=== PATIENT | female | born 1985 | race Caucasian/White ===

== ENCOUNTER 2017-08-12 11:16 | Inpatient (IN) | payer BC ==
[2017-08-12] MEDS ORDERED: Water For Irrigation,Sterile 1,000 ML Container IRR PRN (11:49)
[2017-08-12] MEDS ORDERED: Lidocaine 1% 50 ML MDV INJECT PRN (11:49)
[2017-08-12] MEDS ORDERED: Misoprostol 200 MCG Tab PO PRN (11:49)
[2017-08-12] MEDS ORDERED: Methylergonovine 0.2 MG/1 ML Amp IM PRN (11:49)
[2017-08-12] MEDS ORDERED: Carboprost Tromethamine 250 MCG/1 ML Amp IM PRN (11:49)
[2017-08-12] MEDS ORDERED: Sodium Chloride 0.9% 10 ML Syringe FLUSH PRN (11:49)
[2017-08-12] MEDS ORDERED: Terbutaline 1 MG/ML SDV SUBCUT PRN (11:49)
[2017-08-12] MEDS ORDERED: Sodium Chloride 0.9% 2.5 ML Syringe FLUSH PRN (11:49)
[2017-08-12] MEDS ORDERED: Butorphanol 1 MG/ML SDV IVPUSH PRN (11:49)
[2017-08-12] MEDS ORDERED: Nalbuphine 10 MG/1 ML Vial IVPUSH PRN (11:49)
[2017-08-12] MEDS ORDERED: Oxytocin/0.9 % Sodium Chloride 30 UNIT/500 ML BAG IV SCH ×2 (12:00)
[2017-08-12] MEDS: Lactated Ringers 1,000 ML IV SCH ×3 (12:15→14:40)
[2017-08-12] MEDS ORDERED: fentaNYL 100 MCG/2 ML SDV ONE (13:59)
[2017-08-12] MEDS ORDERED: Ropivacaine 100 ML ONE (14:00)
[2017-08-12] MEDS ORDERED: Ropivacaine 0.2% 2 MG/ML 20 ML SDV ONE (14:00)
--- NOTE | 2017-08-12 14:35 | PCM.PREANE ---
Preanesthetic Assessment - Procedure Proposed Procedure: induction of labor for post dates - Anesthesia/Transfusion/Family Hx Anesthesia History: Prior Anesthesia Without Reaction Other Type of Anesthesia Reaction Comment: 2nd cousin had troubles at 28 yrs old and ended up in [facility] Family History of Anesthesia Reaction: No Transfusion History: No Prior Transfusion(s) - Review of Systems Other: Reports: None - Physical Assessment Height: 5 ft 5 in Weight: 83.461 kg Mental Status: Alert & Oriented x3 Dentition: Reports: Normal Dentition ROM/Head Extension: Full - Lab Values: Laboratory Last Values WBC 8.63 K/uL (4.0-11.0) 08/12/17 12:10 RBC 4.31 M/uL (4.30-5.90) 08/12/17 12:10 Hgb 12.2 g/dL (12.0-16.0) 08/12/17 12:10 Hct 35.8 % (36.0-46.0) L 08/12/17 12:10 MCV 83.1 fL (80.0-98.0) 08/12/17 12:10 MCH 28.3 pg (27.0-32.0) 08/12/17 12:10 MCHC 34.1 g/dL (31.0-37.0) 08/12/17 12:10 RDW Std Deviation 40.1 fl (28.0-62.0) 08/12/17 12:10 RDW Coeff of Curtis 13 % (11.0-15.0) 08/12/17 12:10 Plt Count 236 K/uL (150-400) 08/12/17 12:10 MPV 10.20 fL (7.40-12.00) 08/12/17 12:10 Nucleated RBC % 0.0 /100WBC 08/12/17 12:10 Nucleated RBCs # 0 K/uL 08/12/17 12:10 Blood Type O POSITIVE 08/12/17 12:10 Antibody Screen NEGATIVE 08/12/17 12:10 - Allergies Allergies/Adverse Reactions: Allergies Allergy/AdvReac Type Severity Reaction Status Date / Time No Known Allergies Allergy Verified 10/29/15 13:00 MDT - Blood Blood Available: Yes Product(s) Available: PRBC - Acknowledgements Anesthesia Type Planned: Epidural Pt an Appropriate Candidate for the Planned Anesthesia: Yes Alternatives and Risks of Anesthesia Discussed w Pt/Guardian: Yes Pt/Guardian Understands and Agrees with Anesthesia Plan: Yes PreAnesthesia Questionnaire - Past Health History Medical/Surgical History: Denies Medical/Surgical History HEENT History: Reports: Other (See Below) Other HEENT History: wears glasses/contacts [employer] History: Reports: - Past Surgical History HEENT Surgical History: Reports: Oral Surgery Musculoskeletal Surgical History: Reports: Other (See Below) - SUBSTANCE USE Smoking Status *Q: Never Smoker Tobacco Use Within Last Twelve Months: No Second Hand Smoke Exposure: No Days Per Week of Alcohol Use: 0 Recreational Drug Use History: No - HOME MEDS Home Medications: Home Meds Iron 1 tab PO DAILY 12/29/13 [History] Fish Oil/[place]-3 Fatty Acids [Fish Oil] 1,200 mg PO DAILY #1 12/30/13 [Rx] Vit 90/Iron Fum/Folic [ Formula] 1 cap PO DAILY #1 12/30/13 [Rx ] Biotin 1 tab PO DAILY 09/19/16 [History] Cinnamon Bark [Cinnamon] 1 tab PO DAILY 09/19/16 [History] Coconut Oil 1 tab PO DAILY 09/19/16 [History] Magnesium 1 tab PO DAILY 09/19/16 [History] Norethindrone-Ethinyl Estrad [Necon 0.5-35-28 Tablet] 1 tab PO ASDIRECTED [History] Vitamin B Complex 1 tab PO DAILY 09/19/16 [History] - CURRENT (IN HOUSE) MEDS Current Meds: Current Medications Butorphanol Tartrate (Stadol) 1 mg IVPUSH ASDIRECTED PRN PRN Reason: Pain Carboprost Tromethamine (Hemabate Ds) 250 mcg IM ASDIRECTED PRN PRN Reason: Post Hemorrhage Lactated Ringer's (Ringers, Lactated) 1,000 mls @ 150 mls/hr IV ASDIRECTED KEVIN Last Infusion: 08/12/17 14:07 Dose: 999 mls/hr Oxytocin/Sodium Chloride (Oxytocin 30 Unit/500 Ml-Ns) 30 unit in 500 mls @ 999 mls/hr IV ASDIRECTED KEVIN Oxytocin/Sodium Chloride (Oxytocin 30 Unit/500 Ml-Ns) 30 unit in 500 mls @ 2 mls/hr IV TITRATE KEVIN; 2 MUNITS/MIN PRN Reason: Protocol Last Titration: 08/12/17 14:22 Dose: 10 munits/min, 10 mls/hr Lidocaine HCl (Xylocaine 1%) 50 ml INJECT .ONCE PRN PRN Reason: Laceration repair Methylergonovine Maleate (Methergine) 0.2 mg IM ASDIRECTED PRN PRN Reason: Post Hemorrhage Misoprostol (Cytotec) 200 mcg PO .ONCE PRN PRN Reason: Post Hemorrhage Nalbuphine HCl (Nubain) 10 mg IVPUSH ASDIRECTED PRN PRN Reason: Pain (severe 7-10) Sodium Chloride (Saline Flush) 10 ml FLUSH ASDIRECTED PRN PRN Reason: Keep Vein Open Sodium Chloride (Saline Flush) 2.5 ml FLUSH ASDIRECTED PRN PRN Reason: Keep Vein Open Sterile Water (Sterile Water For Irrigation) 1,000 ml IRR ASDIRECTED PRN PRN Reason: delivery Terbutaline Sulfate (Brethine) 0.25 mg SUBCUT ASDIRECTED PRN PRN Reason: Tacysystole Discontinued Medications Fentanyl (Sublimaze) Confirm Administered Dose 200 mcg .ROUTE .STK-MED ONE Stop: 08/12/17 14:00 Ropivacaine (Naropin 0.2%) Confirm Administered Dose 100 mls @ as directed .ROUTE .STK-MED ONE Stop: 08/12/17 14:01 Ropivacaine (Naropin 0.2%) Confirm Administered Dose 20 ml .ROUTE .STK-MED ONE Stop: 08/12/17 14:01
[2017-08-12] MEDS ORDERED: oxyCODONE 5 MG Tab PO PRN (19:15)
[2017-08-12] MEDS ORDERED: Witch Hazel Medicated Pads 40/Jar TOP PRN (19:15)
[2017-08-12] MEDS ORDERED: Ibuprofen 400 MG Tab PO PRN (19:15)
[2017-08-12] MEDS ORDERED: Acetaminophen 500 MG Tab PO PRN ×2 (19:15)
[2017-08-12] MEDS ORDERED: Lanolin 100% Cream 7 GM Tube TOP PRN (19:15)
[2017-08-12] MEDS ORDERED: Bisacodyl 10 MG Supp RECTAL PRN (19:15)
[2017-08-12] MEDS ORDERED: Docusate Sodium 100 MG Cap PO PRN (19:15)
[2017-08-12] MEDS ORDERED: Benzocaine/Menthol 20%-0.5% Spray 78 GM Cannister TOP PRN (19:15)
--- NOTE | 2017-08-13 01:50 | OR ---
SURGEON: Cortney Arora M.D. DATE OF PROCEDURE: 08/12/2017 PREOPERATIVE DIAGNOSIS: 1. 40 and 4 week intrauterine . 2. Induction of labor past due . POSTOPERATIVE DIAGNOSIS: 1. 40 and 4 week intrauterine . 2. Induction of labor past due . PROCEDURE: Spontaneous vaginal delivery, intact perineum. ESTIMATED BLOOD LOSS: 300 mL. ANESTHESIA: Epidural. COMPLICATIONS: None. FINDINGS: Term male. scores 9 at 1 minute, 9 at 5 minutes. Weight is pending. Spontaneous delivery, intact placenta, 3-vessel cord. DISPOSITION: to nursery, mother in LDRP. PROCEDURE DETAILS: Merari is a 31-year-old, G3, P2-0-0-2, at 40 and 4 weeks gestation who presented this afternoon for a scheduled induction of labor due to past due . Risks of the procedure have been discussed with her and proper consent was obtained. The patient was admitted. Routine labs drawn. IV hydration was initiated. Reactive NST was obtained. heart tones 120s variability. On initial exam, the patient was found to be 3 cm, 70% effaced, -3 station. Pitocin induction was initiated. The patient responded nicely to this. She opted to undergo an epidural. She underwent this. Became more comfortable. Thereafter, underwent an amniotomy. At that time, she was found to be 4 to 5 cm, 80% effaced, -2 station. Clear fluid was returned. The patient progressed quickly to complete within the next hour. I was called for delivery. Upon my arrival, the patient was placed in modified dorsal lithotomy position, prepped and draped in the usual aseptic manner. station was +3. She pushed with the next contraction, was able to deliver 's head atraumatically, spontaneously, followed by anterior shoulder, posterior shoulder, main body without difficulty. The 's oropharynx and nares were bulb suctioned. Cord clamped x2 and cut. Infant was handed off to the attending nursing staff. Cord arterial, cord venous, cord blood sampling was obtained. Light suprapubic pressure was applied while the placenta was delivered spontaneously intact. Vigorous fundal uterine massage was applied while 30 units of Pitocin was delivered in 500 mL IV fluid. Upon inspection of cervix, vaginal sidewall, and perineum, it was found to be intact. The patient tolerated this procedure well. Uterus remained firm. Hemostasis evident. Sponge count and needle count were correct. The patient will remain in LDRP. Infant in nursery. CLAY / MOHINDER /[id number]
--- NOTE | 2017-08-13 02:33 | PCM48HPAN ---
Post Anesthesia Note - EVALUATION WITHIN 48HRS OF ANESTHETIC Vital Signs in Normal Range: Yes Patient Participated in Evaluation: Yes Respiratory Function Stable: Yes Airway Patent: Yes Cardiovascular Function Stable: Yes Hydration Status Stable: Yes Pain Control Satisfactory: Yes Nausea and Vomiting Control Satisfactory: Yes Mental Status Recovered: Yes
--- NOTE | 2017-08-13 08:25 | PCM.PNPP ---
<Nathalie Raymond - Last Filed: 08/13/17 08:22> - General Info Date of Service: 08/13/17 Functional Status: Reports: Pain Controlled, Tolerating Diet, Ambulating, Urinating - Review of Systems General: Denies: Fever, Weakness, Fatigue Pulmonary: Denies: Shortness of Breath, Pleuritic Chest Pain, Cough Cardiovascular: Denies: Chest Pain, Palpitations, Dyspnea on Exertion Gastrointestinal: Denies: Abdominal Pain Genitourinary: Denies: Dysuria Psychiatric: Reports: No Symptoms - General Info Date of Service: 08/13/17 - Patient Data Vital Signs - Most Recent: Last Vital Signs Temp 36.2 C 08/13/17 04:00 Pulse 61 08/13/17 06:30 Resp 15 08/13/17 04:00 BP 110/68 08/13/17 04:00 Pulse Ox 100 08/13/17 04:00 Weight - Most Recent: 83.461 kg Lab Results - Last 24 Hours: Laboratory Results - last 24 hr 08/12/17 08/12/17 08/13/17 Range/Units 12:10 12:10 05:53 WBC 8.63 (4.0-11.0) K/uL RBC 4.31 (4.30-5.90) M/uL Hgb 12.2 11.0 L (12.0-16.0) g/dL Hct 35.8 L 32.9 L (36.0-46.0) % MCV 83.1 (80.0-98.0) fL MCH 28.3 (27.0-32.0) pg MCHC 34.1 (31.0-37.0) g/dL RDW Std Deviation 40.1 (28.0-62.0) fl RDW Coeff of Curtis 13 (11.0-15.0) % Plt Count 236 (150-400) K/uL MPV 10.20 (7.40-12.00) fL Nucleated RBC % 0.0 /100WBC Nucleated RBCs # 0 K/uL Blood Type O POSITIVE Antibody Screen NEGATIVE Med Orders - Current: Current Medications Acetaminophen (Tylenol Extra Strength) 500 mg PO Q4H PRN PRN Reason: Pain Acetaminophen (Tylenol Extra Strength) 1,000 mg PO Q4H PRN PRN Reason: Pain Benzocaine/Menthol (Dermoplast Pain Relief 20%-0.5% [place]) 0 gm TOP ASDIRECTED PRN PRN Reason: Perineal Comfort Measure Bisacodyl (Dulcolax) 10 mg RECTAL .ONCE PRN PRN Reason: Constipation Carboprost Tromethamine (Hemabate Ds) 250 mcg IM ASDIRECTED PRN PRN Reason: Post Hemorrhage Docusate Sodium (Colace) 100 mg PO BID PRN PRN Reason: Constipation Emollient Ointment (Lansinoh Hpa) 0 gm TOP ASDIRECTED PRN PRN Reason: Sore Nipples Lactated Ringer's (Ringers, Lactated) 1,000 mls @ 150 mls/hr IV ASDIRECTED KEVIN Last Admin: 08/12/17 14:40 Dose: 150 mls/hr Oxytocin/Sodium Chloride (Oxytocin 30 Unit/500 Ml-Ns) 30 unit in 500 mls @ 999 mls/hr IV ASDIRECTED KEVIN Oxytocin/Sodium Chloride (Oxytocin 30 Unit/500 Ml-Ns) 30 unit in 500 mls @ 2 mls/hr IV TITRATE KEVIN; 2 MUNITS/MIN PRN Reason: Protocol Last Titration: 08/12/17 15:31 Dose: 10 munits/min, 10 mls/hr Ibuprofen (Motrin) 400 mg PO Q4H PRN PRN Reason: Pain Ibuprofen (Motrin) 800 mg PO Q6H PRN PRN Reason: Pain Lidocaine HCl (Xylocaine 1%) 50 ml INJECT .ONCE PRN PRN Reason: Laceration repair Methylergonovine Maleate (Methergine) 0.2 mg IM ASDIRECTED PRN PRN Reason: Post Hemorrhage Misoprostol (Cytotec) 200 mcg PO .ONCE PRN PRN Reason: Post Hemorrhage Oxycodone HCl (Oxycodone) 5 mg PO Q2H PRN PRN Reason: Pain Sodium Chloride (Saline Flush) 10 ml FLUSH ASDIRECTED PRN PRN Reason: Keep Vein Open Witch Yamel (Tucks) 1 pad TOP ASDIRECTED PRN PRN Reason: comfort care Discontinued Medications Butorphanol Tartrate (Stadol) 1 mg IVPUSH ASDIRECTED PRN PRN Reason: Pain Fentanyl (Sublimaze) Confirm Administered Dose 200 mcg .ROUTE .[facility]-MED ONE Stop: 08/12/17 14:00 Last Admin: 08/13/17 05:36 Dose: Not Given Ropivacaine (Naropin 0.2%) Confirm Administered Dose 100 mls @ as directed .ROUTE .STK-MED ONE Stop: 08/12/17 14:01 Last Admin: 08/13/17 05:36 Dose: Not Given Nalbuphine HCl (Nubain) 10 mg IVPUSH ASDIRECTED PRN PRN Reason: Pain (severe 7-10) Ropivacaine (Naropin 0.2%) Confirm Administered Dose 20 ml .ROUTE .STK-MED ONE Stop: 08/12/17 14:01 Last Admin: 08/13/17 05:36 Dose: Not Given Sodium Chloride (Saline Flush) 2.5 ml FLUSH ASDIRECTED PRN PRN Reason: Keep Vein Open Sterile Water (Sterile Water For Irrigation) 1,000 ml IRR ASDIRECTED PRN PRN Reason: delivery Terbutaline Sulfate (Brethine) 0.25 mg SUBCUT ASDIRECTED PRN PRN Reason: Tacysystole - Interaction Infant Disposition, : [place] in Room with Family Feeding: Breastfed ; Nursed Well Support Person: - Recovery Exam Fundal Tone: Firm Fundal Level: 1 Fingerbreadths Below Umbilicus Fundal Placement: Midline Lochia Amount: Scant Lochia Color: Rubra/Red Perineum Description: Intact, Minimal Bruising/Swelling Episiotomy/Laceration: None Bladder Status: Voiding Urinary Elimination: Voided - Exam General: Alert, Oriented Neck: Supple Lungs: Clear to Auscultation, Normal Respiratory Effort Cardiovascular: Regular Rate, Regular Rhythm GI/Abdominal Exam: Normal Bowel Sounds, Non-Tender, No Distention Extremities: Normal Inspection, Pedal Edema (trace) Skin: Warm, Dry, Intact - Problem List & Annotations (1) Vaginal delivery SNOMED Code(s): 702961310 Code(s): O80 - ENCOUNTER FOR FULL-TERM UNCOMPLICATED DELIVERY Status: Acute Current Visit: No - Problem List Review Problem List Initiated/Reviewed/Updated: Yes - Assessment Assessment:: PPD #1 from . Minimal pain and lochia. Breast feeding well. Would like to be discharged this evening. - Plan Plan:: Discharge instructions reviewed. Nothing in the vagina for 6 weeks. Continue PNV while breast feeding. Can use OTC ibuprofen/tylenol as need for pain. Instructed patient to call if she develops fever greater than 101 or bleeding through a large pad an hour. F/U with [facility] in 6 weeks. <Cortney Arora - Last Filed: 08/13/17 09:01> - Patient Data Vital Signs - Most Recent: Last Vital Signs Temp 36.2 C 08/13/17 04:00 Pulse 61 08/13/17 06:30 Resp 15 08/13/17 04:00 BP 110/68 08/13/17 04:00 Pulse Ox 100 08/13/17 04:00 Lab Results - Last 24 Hours: Laboratory Results - last 24 hr 08/12/17 08/12/17 08/13/17 Range/Units 12:10 12:10 05:53 WBC 8.63 (4.0-11.0) K/uL RBC 4.31 (4.30-5.90) M/uL Hgb 12.2 11.0 L (12.0-16.0) g/dL Hct 35.8 L 32.9 L (36.0-46.0) % MCV 83.1 (80.0-98.0) fL MCH 28.3 (27.0-32.0) pg MCHC 34.1 (31.0-37.0) g/dL RDW Std Deviation 40.1 (28.0-62.0) fl RDW Coeff of Curtis 13 (11.0-15.0) % Plt Count 236 (150-400) K/uL MPV 10.20 (7.40-12.00) fL Nucleated RBC % 0.0 /100WBC Nucleated RBCs # 0 K/uL Blood Type O POSITIVE Antibody Screen NEGATIVE Med Orders - Current: Current Medications Acetaminophen (Tylenol Extra Strength) 500 mg PO Q4H PRN PRN Reason: Pain Acetaminophen (Tylenol Extra Strength) 1,000 mg PO Q4H PRN PRN Reason: Pain Benzocaine/Menthol (Dermoplast Pain Relief 20%-0.5% [place]) 0 gm TOP ASDIRECTED PRN PRN Reason: Perineal Comfort Measure Bisacodyl (Dulcolax) 10 mg RECTAL .ONCE PRN PRN Reason: Constipation Carboprost Tromethamine (Hemabate Ds) 250 mcg IM ASDIRECTED PRN PRN Reason: Post Hemorrhage Docusate Sodium (Colace) 100 mg PO BID PRN PRN Reason: Constipation Last Admin: 08/13/17 08:48 Dose: 100 mg Emollient Ointment (Lansinoh Hpa) 0 gm TOP ASDIRECTED PRN PRN Reason: Sore Nipples Lactated Ringer's (Ringers, Lactated) 1,000 mls @ 150 mls/hr IV ASDIRECTED KEVIN Last Admin: 08/12/17 14:40 Dose: 150 mls/hr Oxytocin/Sodium Chloride (Oxytocin 30 Unit/500 Ml-Ns) 30 unit in 500 mls @ 999 mls/hr IV ASDIRECTED KEVIN Oxytocin/Sodium Chloride (Oxytocin 30 Unit/500 Ml-Ns) 30 unit in 500 mls @ 2 mls/hr IV TITRATE KEVIN; 2 MUNITS/MIN PRN Reason: Protocol Last Titration: 08/12/17 15:31 Dose: 10 munits/min, 10 mls/hr Ibuprofen (Motrin) 400 mg PO Q4H PRN PRN Reason: Pain Ibuprofen (Motrin) 800 mg PO Q6H PRN PRN Reason: Pain Last Admin: 08/13/17 08:48 Dose: 800 mg Lidocaine HCl (Xylocaine 1%) 50 ml INJECT .ONCE PRN PRN Reason: Laceration repair Methylergonovine Maleate (Methergine) 0.2 mg IM ASDIRECTED PRN PRN Reason: Post Hemorrhage Misoprostol (Cytotec) 200 mcg PO .ONCE PRN PRN Reason: Post Hemorrhage Oxycodone HCl (Oxycodone) 5 mg PO Q2H PRN PRN Reason: Pain Sodium Chloride (Saline Flush) 10 ml FLUSH ASDIRECTED PRN PRN Reason: Keep Vein Open Witch Yamel (Tucks) 1 pad TOP ASDIRECTED PRN PRN Reason: comfort care Discontinued Medications Butorphanol Tartrate (Stadol) 1 mg IVPUSH ASDIRECTED PRN PRN Reason: Pain Fentanyl (Sublimaze) Confirm Administered Dose 200 mcg .ROUTE .STK-MED ONE Stop: 08/12/17 14:00 Last Admin: 08/13/17 05:36 Dose: Not Given Ropivacaine (Naropin 0.2%) Confirm Administered Dose 100 mls @ as directed .ROUTE .STK-MED ONE Stop: 08/12/17 14:01 Last Admin: 08/13/17 05:36 Dose: Not Given Nalbuphine HCl (Nubain) 10 mg IVPUSH ASDIRECTED PRN PRN Reason: Pain (severe 7-10) Ropivacaine (Naropin 0.2%) Confirm Administered Dose 20 ml .ROUTE .STK-MED ONE Stop: 08/12/17 14:01 Last Admin: 08/13/17 05:36 Dose: Not Given Sodium Chloride (Saline Flush) 2.5 ml FLUSH ASDIRECTED PRN PRN Reason: Keep Vein Open Sterile Water (Sterile Water For Irrigation) 1,000 ml IRR ASDIRECTED PRN PRN Reason: delivery Terbutaline Sulfate (Brethine) 0.25 mg SUBCUT ASDIRECTED PRN PRN Reason: Tacysystole - My Orders Last 24 Hours: My Active Orders 08/12/17 11:49 Heart Tones [RC] CONTINUOUS Non Stress Test [RC] PER UNIT ROUTINE Oxygen Therapy [RC] ASDIRECTED Vaginal Exam [RC] PRN Vital Signs [RC] PER UNIT ROUTINE Carboprost Tromethamine [Hemabate DS] 250 mcg IM ASDIRECTED PRN Lidocaine 1% [Xylocaine 1%] 50 ml INJECT .ONCE PRN Methylergonovine [Methergine] 0.2 mg IM ASDIRECTED PRN Misoprostol [Cytotec] 200 mcg PO .ONCE PRN Sodium Chloride 0.9% [Saline Flush] 10 ml FLUSH ASDIRECTED PRN Peripheral IV Insertion Adult [OM.PC] Routine Resuscitation Status Routine 08/12/17 12:00 Lactated Ringers [Ringers, Lactated] 1,000 ml IV ASDIRECTED Oxytocin/0.9 % Sodium Chloride [Oxytocin 30 Unit/500 ML-NS] 30 unit in 500 ml IV ASDIRECTED Oxytocin/0.9 % Sodium Chloride [Oxytocin 30 Unit/500 ML-NS] 30 unit in 500 ml IV TITRATE Medication Administration Instruction [OM.PC] Q3H 08/12/17 15:00 Insert Nathan Catheter [Insert Urinary Catheter] [OM.PC] Q24H 08/12/17 19:15 Patient Status [ADT] Routine May Shower [RC] ASDIRECTED Up ad Suzanne [RC] ASDIRECTED Vital Signs [RC] PER UNIT ROUTINE Acetaminophen [Tylenol Extra Strength] 1,000 mg PO Q4H PRN Acetaminophen [Tylenol Extra Strength] 500 mg PO Q4H PRN Benzocaine/Menthol [Dermoplast Pain Relief 20%-0.5% [place]] 0 gm TOP ASDIRECTED PRN Bisacodyl [Dulcolax] 10 mg RECTAL .ONCE PRN Docusate Sodium [Colace] 100 mg PO BID PRN Ibuprofen [Motrin] 400 mg PO Q4H PRN Ibuprofen [Motrin] 800 mg PO Q6H PRN Lanolin [Lansinoh HPA] See Dose Instructions TOP ASDIRECTED PRN Witch Yamel [Tucks] 1 pad TOP ASDIRECTED PRN oxyCODONE 5 mg PO Q2H PRN Assess Lochia [WOMSER] Per Unit Routine Assess Uterine Involution [WOMSER] Per Unit Routine Breast Pump [WOMSER] Per Unit Routine Ice Therapy [OM.PC] Per Unit Routine Perineal Care [OM.PC] Per Unit Routine Peripheral IV Discontinue [OM.PC] Routine Sitz Bath [OM.PC] Per Unit Routine 08/12/17 Dinner Regular Diet [DIET] - Plan Plan:: Patient seen and examined--agree with above
[2017-08-13] MEDS: Ibuprofen 800 MG Tab PO PRN ×2 (08:48→16:18)
[2017-08-13 19:42] VITALS: BP 105/66
== END 2017-08-13 21:25 | disposition home or self-care (01) | DRG 560 ==
LOC: MW.OB 11:16 → OBSVTOIN 18:58
PROVIDERS: ADMIT Obstetrics & Gynecology; ATTEND Obstetrics & Gynecology
PROC: 10E0XZZ Delivery of Products of Conception, External Approach (ICD-10-PCS; principal; 2017-08-12)
PROC: 10907ZC Drainage of Amniotic Fluid, Therapeutic from Products of Conception, Via Natural or Artificial Opening (ICD-10-PCS; 2017-08-12)
PROC: 3E033VJ Introduction of Other Hormone into Peripheral Vein, Percutaneous Approach (ICD-10-PCS; 2017-08-12)
DX: O80 Encounter for full-term uncomplicated delivery (principal); Z3A.40 40 weeks gestation of pregnancy; Z37.0 Single live birth
CPT/HCPCS: 01967; 36415; 51702; 59025; 59409; 85014; 85018; 85027; 86850; 86900; 86901; A9270-GY; J2590; J7120

== ENCOUNTER 2018-12-01 06:59 | Day surgery (SDC) | payer BC ==
[2018-12-01] MEDS ORDERED: Propofol 200 MG/20 ML SDV ONE (07:17)
[2018-12-01] MEDS ORDERED: Ondansetron 4 MG/2 ML SDV ONE (07:17)
[2018-12-01] MEDS ORDERED: Midazolam 1 MG/ML 2 ML SDV ONE (07:17)
[2018-12-01] MEDS ORDERED: Lidocaine 2% 5 ML SDV ONE (07:17)
[2018-12-01] MEDS ORDERED: fentaNYL 250 MCG/5 ML SDV ONE (07:17)
--- NOTE | 2018-12-01 07:45 | PCM.PREANE ---
Preanesthetic Assessment - Anesthesia/Transfusion/Family Hx Anesthesia History: Prior Anesthesia Without Reaction Other Type of Anesthesia Reaction Comment: 2nd cousin had troubles at 28 yrs old and ended up in [facility] Family History of Anesthesia Reaction: No Transfusion History: No Prior Transfusion(s) Intubation History: Unknown - Review of Systems General: No Symptoms Pulmonary: No Symptoms Cardiovascular: No Symptoms Gastrointestinal: No Symptoms Neurological: No Symptoms Other: Reports: None - Physical Assessment Height: 1.66 m Weight: 69.4 kg ASA Class: 1 Mental Status: Alert & Oriented x3 Airway Class: Mallampati = 1 Dentition: Reports: Normal Dentition, Broken Tooth/Teeth (small chip right lower (back)) Thyro-Mental Finger Breadths: 3 Mouth Opening Finger Breadths: 3 ROM/Head Extension: Full Lungs: Clear to Auscultation, Normal Respiratory Effort Cardiovascular: Regular Rate, Regular Rhythm - Lab Values: Laboratory Last Values WBC 6.05 K/uL (4.0-11.0) 12/01/18 07:28 RBC 4.68 M/uL (4.30-5.90) 12/01/18 07:28 Hgb 13.3 g/dL (12.0-16.0) 12/01/18 07:28 Hct 39.7 % (36.0-46.0) 12/01/18 07:28 MCV 84.8 fL (80.0-98.0) 12/01/18 07:28 MCH 28.4 pg (27.0-32.0) 12/01/18 07:28 MCHC 33.5 g/dL (31.0-37.0) 12/01/18 07:28 RDW Std Deviation 37.6 fl (28.0-62.0) 12/01/18 07:28 RDW Coeff of Curtis 12 % (11.0-15.0) 12/01/18 07:28 Plt Count 250 K/uL (150-400) 12/01/18 07:28 MPV 9.50 fL (7.40-12.00) 12/01/18 07:28 Nucleated RBC % 0.0 /100WBC 12/01/18 07:28 Nucleated RBCs # 0 K/uL 12/01/18 07:28 - Allergies Allergies/Adverse Reactions: Allergies Allergy/AdvReac Type Severity Reaction Status Date / Time No Known Allergies Allergy Verified 11/27/18 13:15 - Blood Blood Available: No - Anesthesia Plan Pre-Op Medication Ordered: None - Acknowledgements Anesthesia Type Planned: General Anesthesia Pt an Appropriate Candidate for the Planned Anesthesia: Yes Alternatives and Risks of Anesthesia Discussed w Pt/Guardian: Yes Pt/Guardian Understands and Agrees with Anesthesia Plan: Yes PreAnesthesia Questionnaire - Past Health History Medical/Surgical History: Denies Medical/Surgical History HEENT History: Reports: Other (See Below) Other HEENT History: wears glasses/contacts Cardiovascular History: Reports: Other (See Below) Other Cardiovascular History: "low blood pressure" Respiratory History: Reports: None Gastrointestinal History: Reports: None Genitourinary History: Reports: None 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: Musculoskeletal History: Reports: None Neurological History: Reports: None Psychiatric History: Reports: None Endocrine/Metabolic History: Reports: None Hematologic History: Reports: Anemia Immunologic History: Reports: None Oncologic (Cancer) History: Reports: None Dermatologic History: Reports: None - Past Surgical History Head Surgeries/Procedures: Reports: None HEENT Surgical History: Reports: Oral Surgery Cardiovascular Surgical History: Reports: None Respiratory Surgical History: Reports: None GI Surgical History: Reports: None Female Surgical History: Reports: Other (See Below) Other Female Surgeries/Procedures: hysteroscopy with polypectomy - 2016 Endocrine Surgical History: Reports: None Neurological Surgical History: Reports: None Musculoskeletal Surgical History: Reports: Other (See Below) Other Musculoskeletal Surgeries/Procedures:: cyst removed from rt hand ( ganglion cyst) Oncologic Surgical History: Reports: None Dermatological Surgical History: Reports: None - SUBSTANCE USE Smoking Status *Q: Never Smoker Recreational Drug Use History: No - HOME MEDS Home Medications: Home Meds Iron 27 mg PO DAILY 12/29/13 [History] Vit 90/Iron Fum/Folic [ Formula] 1 cap PO DAILY #1 12/30/13 [Rx ] Biotin 1 tab PO DAILY 09/19/16 [History] Vitamin B Complex 1 tab PO DAILY 09/19/16 [History] Cholecalciferol (Vitamin D3) [Vitamin D3] 2,000 units PO DAILY 11/27/18 [History ] - CURRENT (IN HOUSE) MEDS Current Meds: Current Medications Discontinued Medications Fentanyl (Sublimaze) Confirm Administered Dose 250 mcg .ROUTE .STK-MED ONE Stop: 12/01/18 07:18 Lidocaine (Xylocaine-Mpf 2%) Confirm Administered Dose 5 ml .ROUTE .STK-MED ONE Stop: 12/01/18 07:18 Midazolam HCl (Versed 1 Mg/Ml) Confirm Administered Dose 2 mg .ROUTE .STK-MED ONE Stop: 12/01/18 07:18 Ondansetron HCl (Zofran) Confirm Administered Dose 4 mg .ROUTE .STK-MED ONE Stop: 12/01/18 07:18 Propofol (Diprivan 20 Ml) Confirm Administered Dose 200 mg .ROUTE .STK-MED ONE Stop: 12/01/18 07:18
[2018-12-01] MEDS ORDERED: Glycopyrrolate 0.2 MG/ML SDV ONE ×2 (08:08→08:11)
[2018-12-01] MEDS ORDERED: ePHEDrine 50 MG/ML SDV ONE (08:09)
[2018-12-01] MEDS ORDERED: Naloxone 0.4 MG/ML Syringe IVPUSH PRN (08:24)
[2018-12-01] MEDS ORDERED: fentaNYL 100 MCG/2 ML SDV IVPUSH PRN (08:24)
[2018-12-01] MEDS ORDERED: 50% Dextrose in Water 50 ML Syringe IVPUSH PRN (08:24)
[2018-12-01] MEDS ORDERED: Atropine 0.1 MG/ML 10 ML Syringe IVPUSH PRN ×2 (08:24)
[2018-12-01] MEDS ORDERED: EPINEPHrine 1:10,000 1 MG/10 ML Syringe IVPUSH PRN (08:24)
[2018-12-01] MEDS ORDERED: Albuterol 0.083% 2.5 MG/3 ML Neb Soln NEB PRN (08:24)
[2018-12-01] MEDS ORDERED: Lactated Ringers 1,000 ML IV SCH (08:30)
[2018-12-01] MEDS ORDERED: Ketorolac 30 MG/ML SDV IVPUSH ONE (08:36)
--- NOTE | 2018-12-01 08:39 | PCM.OPNOTE ---
- General Post-Op/Procedure Note Date of Surgery/Procedure: 12/01/18 Operative Procedure(s): Suction D&C Findings: 10 week size uterine cavity, POC Pre Op Diagnosis: 8 week demise. Missed Post-Op Diagnosis: Same Anesthesia Technique: General LMA Primary Surgeon: Cortney Arora Fluid Replacement, Intraop: 1,000 EBL in mLs: 50 Complications: none known Condition: Good Free Text/Narrative:: Dictation [id number]
[2018-12-01 10:01] VITALS: BP 99/48
--- NOTE | 2018-12-01 14:48 | OR ---
SURGEON: Cortney Arora M.D. DATE OF PROCEDURE: 12/01/2018 PREOPERATIVE DIAGNOSES: 1. Eight-week demise. 2. Missed . POSTOPERATIVE DIAGNOSES: 1. Eight-week demise. 2. Missed . PROCEDURE: Suction D and C. ANESTHESIA: General LMA. ESTIMATED BLOOD LOSS: 50 mL. FLUIDS: 1000 mL crystalloid. COMPLICATIONS: None known. FINDINGS: Approximately 10 cm uterine cavity. Products of conception returned. DISPOSITION: The patient to PACU, stable. SPECIMEN: To pathology. PROCEDURE DETAILS: Merari is a 33-year-old female, who recently was diagnosed with an eight-week demise on ultrasound. She has had bleeding for the past two weeks. At this time, the options had been discussed with her, and she would like to proceed with surgical intervention, perform a suction D and C. Risks of procedure have been discussed. Proper consent obtained. The patient was taken to the operating room where she underwent general LMA, was placed in modified dorsal lithotomy position, was prepped and draped in the usual sterile fashion. SCDs to lower extremities. Bladder was drained. Time- out was performed. Speculum was introduced in the vagina. The cervix was gently dilated to 10 mm after sounding the uterus to 10 cm. A 10 mm curved curette was gently introduced into the fundus of cavity with suction apparatus turned on. The uterus was emptied of products of conception. Gentle sharp curettage was now performed with a final sweep with the suction curette. All specimens to pathology. Uterus remained firm and hemostasis evident. Sponge count and instrument count were correct. All instruments were removed from the vagina. The patient tolerated the procedure well. She will go to PACU in stable condition. CLAY / MOHINDER /[id number]
== END 2018-12-01 09:40 | disposition home or self-care (01) ==
LOC: MW.SDS 06:59
PROVIDERS: ATTEND Obstetrics & Gynecology
DX: O02.1 Missed abortion (principal); Z79.899 Other long term (current) drug therapy
CPT/HCPCS: 36415; 59820; 84703; 85027; J1885; J2001; J2250; J2405; J2704; J3010; J3490; J7120; 88305

== ENCOUNTER 2019-09-26 05:16 | Inpatient (IN) | payer BC ==
[2019-09-26] MEDS ORDERED: Methylergonovine 0.2 MG/1 ML Amp IM PRN (05:20)
[2019-09-26] MEDS ORDERED: Misoprostol 25 MCG (1/4 of 100 MCG) Tab VAG PRN ×2 (05:20)
[2019-09-26] MEDS ORDERED: Ondansetron 4 MG/2 ML SDV IVPUSH PRN (05:20)
[2019-09-26] MEDS ORDERED: Water For Irrigation,Sterile 1,000 ML Container IRR PRN (05:20)
[2019-09-26] MEDS ORDERED: Misoprostol 200 MCG Tab PO PRN (05:20)
[2019-09-26] MEDS ORDERED: Lidocaine 1% 50 ML MDV INJECT PRN (05:20)
[2019-09-26] MEDS ORDERED: Tranexamic Acid 1,000 MG in Sodium Chloride 0.9% 100 ML IV PRN (05:20)
[2019-09-26] MEDS ORDERED: Terbutaline 1 MG/ML SDV SUBCUT PRN (05:20)
[2019-09-26] MEDS ORDERED: Butorphanol 1 MG/ML SDV IVPUSH PRN (05:20)
[2019-09-26] MEDS ORDERED: Sodium Chloride 0.9% 10 ML Syringe FLUSH PRN (05:20)
[2019-09-26] MEDS ORDERED: Carboprost Tromethamine 250 MCG/1 ML Amp IM PRN (05:20)
[2019-09-26] MEDS ORDERED: Sodium Chloride 0.9% 2.5 ML Syringe FLUSH PRN (05:20)
[2019-09-26] MEDS ORDERED: Sodium Chloride 0.9% 10 ML SDV IV PRN (05:20)
[2019-09-26] MEDS ORDERED: Nalbuphine 10 MG/1 ML Vial IVPUSH PRN (05:20)
[2019-09-26] MEDS ORDERED: Oxytocin/0.9 % Sodium Chloride 30 UNIT/500 ML BAG IV SCH ×2 (05:30)
[2019-09-26] MEDS: Lactated Ringers 1,000 ML IV SCH ×2 (05:55→10:13)
[2019-09-26] MEDS ORDERED: Ropivacaine HCl/PF 100 ML ONE (09:50)
[2019-09-26] MEDS ORDERED: fentaNYL 100 MCG/2 ML SDV ONE (09:50)
[2019-09-26] MEDS ORDERED: Ropivacaine 0.2% PF 2 MG/ML 20 ML SDV ONE (09:50)
--- NOTE | 2019-09-26 10:45 | PCM.PREANE ---
Preanesthetic Assessment - Anesthesia/Transfusion/Family Hx Anesthesia History: Prior Anesthesia Without Reaction Other Type of Anesthesia Reaction Comment: 2nd cousin had troubles at 27 yrs old and ended up in [facility] Family History of Anesthesia Reaction: Other (see below) Family History of Anesthesia Reaction, Other: See above. Transfusion History: No Prior Transfusion(s) Intubation History: Unknown - Review of Systems General: No Symptoms Pulmonary: No Symptoms Cardiovascular: No Symptoms Gastrointestinal: No Symptoms Neurological: No Symptoms Other: Reports: None - Physical Assessment NPO Status Date: 09/26/19 NPO Status Time: 10:00 (Clear liquids) Vital Signs: noted Height: 1.68 m Weight: 83.915 kg ASA Class: 2 Mental Status: Alert & Oriented x3 Dentition: Reports: Normal Dentition Thyro-Mental Finger Breadths: 3 Mouth Opening Finger Breadths: 3 ROM/Head Extension: Full Lungs: Clear to Auscultation Cardiovascular: Regular Rate - Lab Values: Laboratory Last Values WBC 9.32 K/uL (4.0-11.0) 09/26/19 05:50 RBC 4.32 M/uL (4.30-5.90) 09/26/19 05:50 Hgb 11.6 g/dL (12.0-16.0) L 09/26/19 05:50 Hct 35.3 % (36.0-46.0) L 09/26/19 05:50 MCV 81.7 fL (80.0-98.0) 09/26/19 05:50 MCH 26.9 pg (27.0-32.0) L 09/26/19 05:50 MCHC 32.9 g/dL (31.0-37.0) 09/26/19 05:50 RDW Std Deviation 40.7 fl (28.0-62.0) 09/26/19 05:50 RDW Coeff of Curtis 14 % (11.0-15.0) 09/26/19 05:50 Plt Count 246 K/uL (150-400) 09/26/19 05:50 MPV 10.10 fL (7.40-12.00) 09/26/19 05:50 Nucleated RBC % 0.0 /100WBC 09/26/19 05:50 Nucleated RBCs # 0 K/uL 09/26/19 05:50 Blood Type O POSITIVE 09/26/19 05:50 Antibody Screen NEGATIVE 09/26/19 05:50 - Allergies Allergies/Adverse Reactions: Allergies Allergy/AdvReac Type Severity Reaction Status Date / Time No Known Allergies Allergy Verified 09/26/19 05:19 - Blood Blood Available: No - Acknowledgements Anesthesia Type Planned: Epidural Pt an Appropriate Candidate for the Planned Anesthesia: Yes Alternatives and Risks of Anesthesia Discussed w Pt/Guardian: Yes Pt/Guardian Understands and Agrees with Anesthesia Plan: Yes Additional Comments: Discussed. ? answered. Permit signed. Wishes to proceed. 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: Musculoskeletal History: Reports: None Neurological History: Reports: None Psychiatric History: Reports: None Endocrine/Metabolic History: Reports: None Hematologic History: Reports: Anemia Immunologic History: Reports: None Oncologic (Cancer) History: Reports: None Dermatologic History: Reports: None - Past Surgical History Head Surgeries/Procedures: Reports: None HEENT Surgical History: Reports: Oral Surgery Cardiovascular Surgical History: Reports: None Respiratory Surgical History: Reports: None GI Surgical History: Reports: None Female Surgical History: Reports: Other (See Below) Other Female Surgeries/Procedures: hysteroscopy with polypectomy - 2016 Endocrine Surgical History: Reports: None Neurological Surgical History: Reports: None Musculoskeletal Surgical History: Reports: Other (See Below) Other Musculoskeletal Surgeries/Procedures:: cyst removed from rt hand ( ganglion cyst) Oncologic Surgical History: Reports: None Dermatological Surgical History: Reports: None - SUBSTANCE USE Smoking Status *Q: Never Smoker Tobacco Use Within Last Twelve Months: No Second Hand Smoke Exposure: No Recreational Drug Use History: No - HOME MEDS Home Medications: Home Meds Iron 27 mg PO DAILY 12/29/13 [History] Vit 90/Iron Fum/Folic [ Formula] 1 cap PO DAILY #1 12/30/13 [Rx ] Biotin 1 tab PO DAILY 09/19/16 [History] Vitamin B Complex 1 tab PO DAILY 09/19/16 [History] Cholecalciferol (Vitamin D3) [Vitamin D3] 2,000 units PO DAILY 11/27/18 [History ] - CURRENT (IN HOUSE) MEDS Current Meds: Current Medications Butorphanol Tartrate (Stadol) 1 mg IVPUSH Q1H PRN PRN Reason: Pain Carboprost Tromethamine (Hemabate Ds) 250 mcg IM ASDIRECTED PRN PRN Reason: Post Hemorrhage Lactated Ringer's (Ringers, Lactated) 1,000 mls @ 150 mls/hr IV ASDIRECTED KEVIN Last Admin: 09/26/19 10:13 Dose: 150 mls/hr Oxytocin/Sodium Chloride (Oxytocin 30 Unit/500 Ml-Ns) 30 unit in 500 mls @ 555 mls/hr IV TITRATE KEVIN Oxytocin/Sodium Chloride (Oxytocin 30 Unit/500 Ml-Ns) 30 unit in 500 mls @ 2 mls/hr IV TITRATE KEVIN; Protocol Last Titration: 09/26/19 09:05 Dose: 12 munits/min, 12 mls/hr Tranexamic Acid 1,000 mg/ (Sodium Chloride) 110 mls @ 660 mls/hr IV ONETIME PRN PRN Reason: Bleeding Lidocaine HCl (Xylocaine 1%) 50 ml INJECT ONETIME PRN PRN Reason: Laceration repair Methylergonovine Maleate (Methergine) 0.2 mg IM ASDIRECTED PRN PRN Reason: Post Hemorrhage Misoprostol (Cytotec) 200 mcg PO ONETIME PRN PRN Reason: Post Hemorrhage Nalbuphine HCl (Nubain) 10 mg IVPUSH Q1H PRN PRN Reason: Pain (severe 7-10) Ondansetron HCl (Zofran) 4 mg IVPUSH Q4H PRN PRN Reason: Nausea/Vomiting Sodium Chloride (Saline Flush) 10 ml FLUSH ASDIRECTED PRN PRN Reason: Keep Vein Open Sodium Chloride (Saline Flush) 2.5 ml FLUSH ASDIRECTED PRN PRN Reason: Keep Vein Open Sodium Chloride (Normal Saline) 10 ml IV ASDIRECTED PRN PRN Reason: IV Use Sterile Water (Sterile Water For Irrigation) 1,000 ml IRR ASDIRECTED PRN PRN Reason: delivery Terbutaline Sulfate (Brethine) 0.25 mg SUBCUT ASDIRECTED PRN PRN Reason: Tacysystole Discontinued Medications Fentanyl (Sublimaze) Confirm Administered Dose 100 mcg .ROUTE .STK-MED ONE Stop: 09/26/19 09:51 Ropivacaine (Naropin 0.2%) Confirm Administered Dose 100 mls @ as directed .ROUTE .STK-MED ONE Stop: 09/26/19 09:51 Ropivacaine (Naropin 0.2%) Confirm Administered Dose 20 ml .ROUTE .STK-MED ONE Stop: 09/26/19 09:51
--- NOTE | 2019-09-26 10:54 | PCM.SN ---
- Free Text/Narrative Note: Requested for HAILEY in active labor. On pitocin. ~4 cm. Pain 03/14. Discussed, ? answered, permit signed. Fluid bolus in. BPs has been on low side. Will watch closely. Procedure completed without issues. TEST -. Occlusive drsg. Bolus, 0.2% Naropin 8ml = 100mcg Fentanyl added given over 5 minutes with significant reduction in pain. BPs stable. Placed on gtt 8ml/hr with 4ml/q15 lockout. See anesthesia record. Pain control good.
[2019-09-26] MEDS ORDERED: Ibuprofen 800 MG Tab PO PRN (11:24)
[2019-09-26] MEDS ORDERED: Lanolin 100% Cream 7 GM Tube TOP PRN (11:24)
[2019-09-26] MEDS ORDERED: Witch Hazel Medicated Pads 40/Jar TOP PRN (11:24)
[2019-09-26] MEDS ORDERED: Acetaminophen 500 MG Tab PO PRN ×2 (11:24)
[2019-09-26] MEDS ORDERED: Ibuprofen 400 MG Tab PO PRN (11:24)
[2019-09-26] MEDS ORDERED: oxyCODONE 5 MG Tab PO PRN (11:24)
[2019-09-26] MEDS ORDERED: Docusate Sodium 100 MG Cap PO PRN (11:24)
[2019-09-26] MEDS ORDERED: Benzocaine/Menthol 20%-0.5% Spray 78 GM Cannister TOP PRN (11:24)
[2019-09-26] MEDS ORDERED: Bisacodyl 10 MG Supp RECTAL PRN (11:24)
--- NOTE | 2019-09-26 11:31 | PCM.OPNOTE ---
- General Post-Op/Procedure Note Date of Surgery/Procedure: 09/26/19 Operative Procedure(s): /IP Findings: Viable male APGARs 8, 8 weight 4240 gm. Spontaneous delivery intact placenta with 3V cord Pre Op Diagnosis: 39/4 week IUP. Electiive IOL Post-Op Diagnosis: Same Anesthesia Technique: Epidural Primary Surgeon: Cortney Arora EBL in mLs: 250 Complications: none known Condition: Stable Free Text/Narrative:: Dictation [id number]
--- NOTE | 2019-09-26 12:13 | OR ---
SURGEON: Cortney Arora M.D. DATE OF PROCEDURE: 09/26/2019 PREOPERATIVE DIAGNOSES: 1. A 39-4/7 weeks' intrauterine . 2. Elective induction of labor. POSTOPERATIVE DIAGNOSES: 1. A 39-4/7 weeks' intrauterine . 2. Elective induction of labor. PROCEDURE: Spontaneous vaginal delivery, intact perineum. PRIMARY SURGEON: Cortney Arora MD. ANESTHESIA: Epidural. ESTIMATED BLOOD LOSS: 250 mL. COMPLICATIONS: None known. FINDINGS: Viable male. score of 8 at one minute, 9 at five minutes. Weight of 4240 g. Spontaneous delivery, intact placenta, 3-vessel cord. DISPOSITION: in nursery, Mom in LDRP, stable. PROCEDURE DETAILS: Merari is a 34-year-old, G5, P 3-0-1-3, at 39-4/7 weeks' gestational age who presented on the morning of 09/26/2019 for scheduled elective induction of labor due to the fact that she is multiparous, had relatively rapid labors, and lives over an hour away. On initial examination, she was found to be 3 cm, 70% effaced, minus 2 station. Therefore, she was admitted, routine labs drawn, IV hydration was initiated. Category I heart tones were noted. The patient was initiated on Pitocin induction, responded nicely to this. Shortly after 9 am she was found to be 3 to 4 cm, 70% effaced, minus 2 station. She is group B beta strep negative. Therefore, amniotomy was performed, clear fluid was returned. The patient became increasingly uncomfortable fairly rapidly thereafter, underwent regional anesthesia in the form of epidural, became more comfortable. heart tones remained category 1. Within the hour, she progressed to 9 cm, feeling the urge to push. I was called for delivery. Upon my arrival, the patient was placed in modified dorsal lithotomy position. Was found to be complete, 100% effaced, +2 station. She began pushing efforts and pushed adequately to a +4 station. Was able to deliver 's head atraumatically spontaneously, followed by anterior shoulder, posterior shoulder, and remainder of the body. Infant's oropharynx and nares were bulb suctioned. was handed off to his mother with attending nursing staff at her side. After a delay, cord was clamped x2 and cut. Cord arterial, cord venous, cord blood sampling obtained. Light pressure was applied while the placenta was delivered spontaneously intact. Vigorous fundal uterine massage was then applied while 30 units of Pitocin was delivered in 500 mL of IV fluid. Upon inspection of cervix, vaginal sidewalls, and perineum, these were found to be intact. She does have a left hymenal ring inclusion cyst, which we had discussed removing at the time of delivery. This was done easily, this was tented upward, excised at the base with Huffman scissors, and then sutured over the remaining wound bed with 3-0 Vicryl in continuous running fashion. Hemostasis appeared evident. The patient has tolerated the procedure well overall. She will remain in LDRP, to nursery. Sponge, needle, and instrument count was correct. CLAY / MOHINDER /[id number] MTDD
[2019-09-27 08:07] VITALS: BP 112/55; PULSE 63
--- NOTE | 2019-09-27 11:13 | PCM.PNPP ---
- General Info Date of Service: 09/27/19 Functional Status: Reports: Pain Controlled, Tolerating Diet, Ambulating, Urinating - Review of Systems General: Denies: Fever, Weakness, Fatigue Pulmonary: Denies: Shortness of Breath Cardiovascular: Denies: Chest Pain, Palpitations, Lightheadedness Gastrointestinal: Denies: Abdominal Pain, Nausea, Vomiting Genitourinary: Reports: No Symptoms Musculoskeletal: Reports: No Symptoms Skin: Reports: No Symptoms Neurological: Reports: No Symptoms Psychiatric: Reports: No Symptoms - General Info Date of Service: 09/27/19 - Patient Data Vital Signs - Most Recent: Last Vital Signs Temp 36.4 C 09/27/19 07:30 Pulse 63 09/27/19 07:30 Resp 16 09/27/19 07:30 BP 112/55 L 09/27/19 07:30 Pulse Ox 99 09/27/19 07:30 Weight - Most Recent: 83.915 kg Lab Results - Last 24 Hours: Laboratory Results - last 24 hr 09/26/19 09/27/19 Range/Units 11:00 06:00 Hgb 10.7 L (12.0-16.0) g/dL Hct 33.5 L (36.0-46.0) % Cord ABG pH 7.318 (7.18-7.38) Cord ABG Base Excess -6 (-10--2) Cord VBG pH 7.320 (7.25-7.45) Cord VBG Base Excess -5 (-10--2) Med Orders - Current: Current Medications Acetaminophen (Tylenol Extra Strength) 500 mg PO Q4H PRN PRN Reason: Pain Acetaminophen (Tylenol Extra Strength) 1,000 mg PO Q4H PRN PRN Reason: Pain Benzocaine/Menthol (Dermoplast Pain Relief 20%-0.5% [place]) 78 gm TOP ASDIRECTED PRN PRN Reason: Perineal Comfort Measure Last Admin: 09/26/19 13:39 Dose: 1 applic Bisacodyl (Dulcolax) 10 mg RECTAL ONETIME PRN PRN Reason: Constipation Carboprost Tromethamine (Hemabate Ds) 250 mcg IM ASDIRECTED PRN PRN Reason: Post Hemorrhage Docusate Sodium (Colace) 100 mg PO BID PRN PRN Reason: Constipation Emollient Ointment (Lansinoh Hpa) 0 gm TOP ASDIRECTED PRN PRN Reason: Sore Nipples Last Admin: 09/26/19 13:39 Dose: 1 applic Lactated Ringer's (Ringers, Lactated) 1,000 mls @ 150 mls/hr IV ASDIRECTED KEVIN Last Admin: 09/26/19 10:13 Dose: 150 mls/hr Oxytocin/Sodium Chloride (Oxytocin 30 Unit/500 Ml-Ns) 30 unit in 500 mls @ 555 mls/hr IV TITRATE KEVIN Oxytocin/Sodium Chloride (Oxytocin 30 Unit/500 Ml-Ns) 30 unit in 500 mls @ 2 mls/hr IV TITRATE KEVIN; Protocol Last Titration: 09/26/19 09:05 Dose: 12 munits/min, 12 mls/hr Tranexamic Acid 1,000 mg/ (Sodium Chloride) 110 mls @ 660 mls/hr IV ONETIME PRN PRN Reason: Bleeding Ibuprofen (Motrin) 400 mg PO Q4H PRN PRN Reason: Pain Ibuprofen (Motrin) 800 mg PO Q6H PRN PRN Reason: Pain Last Admin: 09/26/19 19:09 Dose: 800 mg Methylergonovine Maleate (Methergine) 0.2 mg IM ASDIRECTED PRN PRN Reason: Post Hemorrhage Ondansetron HCl (Zofran) 4 mg IVPUSH Q4H PRN PRN Reason: Nausea/Vomiting Oxycodone HCl (Oxycodone) 5 mg PO Q2H PRN PRN Reason: Pain Sodium Chloride (Saline Flush) 10 ml FLUSH ASDIRECTED PRN PRN Reason: Keep Vein Open Sodium Chloride (Saline Flush) 2.5 ml FLUSH ASDIRECTED PRN PRN Reason: Keep Vein Open Sodium Chloride (Normal Saline) 10 ml IV ASDIRECTED PRN PRN Reason: IV Use Sterile Water (Sterile Water For Irrigation) 1,000 ml IRR ASDIRECTED PRN PRN Reason: delivery Witch Yamel (Tucks) 1 pad TOP ASDIRECTED PRN PRN Reason: comfort care Last Admin: 09/26/19 13:38 Dose: 1 applic Discontinued Medications Butorphanol Tartrate (Stadol) 1 mg IVPUSH Q1H PRN PRN Reason: Pain Fentanyl (Sublimaze) Confirm Administered Dose 100 mcg .ROUTE .STK-MED ONE Stop: 02/22/20 09:51 Ropivacaine (Naropin 0.2%) Confirm Administered Dose 100 mls @ as directed .ROUTE .STK-MED ONE Stop: 09/26/19 09:51 Lidocaine HCl (Xylocaine 1%) 50 ml INJECT ONETIME PRN PRN Reason: Laceration repair Misoprostol (Cytotec) 200 mcg PO ONETIME PRN PRN Reason: Post Hemorrhage Nalbuphine HCl (Nubain) 10 mg IVPUSH Q1H PRN PRN Reason: Pain (severe 7-10) Ropivacaine (Naropin 0.2%) Confirm Administered Dose 20 ml .ROUTE .STK-MED ONE Stop: 09/26/19 09:51 Terbutaline Sulfate (Brethine) 0.25 mg SUBCUT ASDIRECTED PRN PRN Reason: Tacysystole - Infant Interaction Support Person: - Recovery Exam Fundal Tone: Firm Fundal Level: At Umbilicus Fundal Placement: Left Lochia Amount: Scant Lochia Color: Rubra/Red Perineum Description: Intact, Minimal Bruising/Swelling, Other (see below) Other Perinuem Description: cyst removed from vagina, repaired with 1 suture Episiotomy/Laceration: Approximated Bladder Status: Voiding - Exam General: Alert, Oriented Lungs: Normal Respiratory Effort Cardiovascular: Regular Rate, Regular Rhythm GI/Abdominal Exam: Normal Bowel Sounds, Soft, Non-Tender Extremities: Pedal Edema (trace). No: Suzanne's Sign Skin: Warm, Dry, Intact Neurological: No New Focal Deficit Psy/Mental Status: Alert, Normal Affect, Normal Mood - Problem List & Annotations (1) Vaginal delivery SNOMED Code(s): 892162076 Code(s): O80 - ENCOUNTER FOR FULL-TERM UNCOMPLICATED DELIVERY Status: Acute Current Visit: No - Problem List Review Problem List Initiated/Reviewed/Updated: Yes - My Orders Last 24 Hours: My Active Orders 09/26/19 11:24 Patient Status [ADT] Routine May Shower [RC] ASDIRECTED Notify Provider Vital Signs [RC] ASDIRECTED Up ad Suzanne [RC] ASDIRECTED Vital Signs [RC] PER UNIT ROUTINE Acetaminophen [Tylenol Extra Strength] 1,000 mg PO Q4H PRN Acetaminophen [Tylenol Extra Strength] 500 mg PO Q4H PRN Benzocaine/Menthol [Dermoplast Pain Relief 20%-0.5% [place]] 78 gm TOP ASDIRECTED PRN Docusate Sodium [Colace] 100 mg PO BID PRN Ibuprofen [Motrin] 400 mg PO Q4H PRN Ibuprofen [Motrin] 800 mg PO Q6H PRN Lanolin [Lansinoh HPA] See Dose Instructions TOP ASDIRECTED PRN bisacodyL [Dulcolax] 10 mg RECTAL ONETIME PRN oxyCODONE 5 mg PO Q2H PRN witch Yamel [Tucks] 1 pad TOP ASDIRECTED PRN Assess Lochia [WOMSER] Per Unit Routine Assess Uterine Involution [WOMSER] Per Unit Routine Perineal Care [OM.PC] Per Unit Routine Peripheral IV Discontinue [OM.PC] Routine Sitz Bath [OM.PC] Per Unit Routine 09/26/19 11:25 Ice Therapy [OM.PC] Per Unit Routine 09/26/19 Lunch Regular Diet [DIET] - Assessment Assessment:: PPD 1 status post - Plan Plan:: VS and labs are reassuring. Would like to go home today. Discharge instructions reviewed. Follow up at [facility] 6 weeks. Discharge to home today.
--- NOTE | 2019-09-27 11:53 | PCM48HPAN ---
Post Anesthesia Note - EVALUATION WITHIN 48HRS OF ANESTHETIC Vital Signs in Normal Range: Yes Patient Participated in Evaluation: Yes Respiratory Function Stable: Yes Airway Patent: Yes Cardiovascular Function Stable: Yes Hydration Status Stable: Yes Pain Control Satisfactory: Yes Nausea and Vomiting Control Satisfactory: Yes Mental Status Recovered: Yes Vital Signs: Last Vital Signs Temp 36.4 C 09/27/19 07:30 Pulse 63 09/27/19 07:30 Resp 16 09/27/19 07:30 BP 112/55 L 09/27/19 07:30 Pulse Ox 99 09/27/19 07:30 - COMMENTS/OBSERVATIONS Free Text/Narrative:: Doing well.
== END 2019-09-27 13:45 | disposition home or self-care (01) | DRG 560 ==
LOC: MW.OBCHECK 05:16 → MW.OB 05:17 → OBSVTOIN 11:00 → MW.OB 14:11
PROVIDERS: ADMIT Obstetrics & Gynecology; ATTEND Obstetrics & Gynecology
PROC: 10E0XZZ Delivery of Products of Conception, External Approach (ICD-10-PCS; principal; 2019-09-26)
PROC: 10907ZC Drainage of Amniotic Fluid, Therapeutic from Products of Conception, Via Natural or Artificial Opening (ICD-10-PCS; 2019-09-26)
PROC: 3E033VJ Introduction of Other Hormone into Peripheral Vein, Percutaneous Approach (ICD-10-PCS; 2019-09-26)
PROC: 3E0R3BZ Introduction of Anesthetic Agent into Spinal Canal, Percutaneous Approach (ICD-10-PCS; 2019-09-26)
DX: O80 Encounter for full-term uncomplicated delivery (principal); Z3A.39 39 weeks gestation of pregnancy; Z37.0 Single live birth
CPT/HCPCS: 36415; 51703; 59025; 59409; 82803; 85014; 85018; 85027; 86592; 86850; 86900; 86901; A9270-GY; J2590; J2795; J3010; J7120